=== PATIENT | female | born 1985 | race Caucasian/White ===

== ENCOUNTER 2018-12-11 07:33 | Emergency (ER) | payer MEDICAID, SELFPAY ==
[2018-12-11 07:35] VITALS: BP 131/83; PULSE 73; RESP 12; TEMP 36.8; O2SAT 100
--- NOTE | 2018-12-11 07:38 | W.ED.GENAD ---
Discharge Plan Disposition [facility] Condition: Fair Discharge Details Chief Complaint: AMS/LOC Clinical Impression: Psychosis Primary Care Provider: Nusrat Parr ED Provider: Kyleigh Boyer Home Meds and New Rx's Prescriptions: Continued naproxen [Naprosyn] 500 MG tablet 500 mg PO BID Qty: 30 RF: 1 ziprasidone HCl [Geodon] 80 MG capsule 80 mg PO HS RF: 0 trazodone 50 MG tablet 50 mg PO HS RF: 0 lithium carbonate 300 MG tablet extended release 450 mg PO BID RF: 0 ziprasidone HCl [Geodon] 40 MG capsule 40 mg PO DAILY RF: 0 Discharge Instructions Instructions: Cephalexin (By mouth), Urinary Tract Infection in Women (ED), Bipolar Disorder (ED) Additional Instructions: Please return immediately to the emergency department if you develop any new or worsening symptoms or if you become otherwise concerned. It is extremely important that you make an appointment to be seen as soon as possible by your primary care doctor. Referrals: Nusrat Parr [Primary Care Provider] - Discharge Data Discharge Date/Time-TO BE ENTERED AT DEPARTURE: 12/11/18 16:55 Medical Decision Making Libertad Doherty is a 33-year-old woman with a history of bipolar disorder who presented to the emergency department for acting abnormally at work this morning. On exam patient is well and nontoxic appearing, but does have some mildly inappropriate behavior and judgment. When asked about her family, patient states that she has 2 daughters who are 9 and 13. When asked who was taking care of them tonight, and patient states they are, they're taking care of themselves. When I asked if their father, Romero, would be taking care of them tonight, Pt stated, I guess so. Yes Romero. Romero is taking care of them. Patient reports that Romero is her emergency contact and also the father of her children. Per pt's work place, Pt was throwing lettuce in the air, acting inappropriately, very unlike her, which was the reason EMS was called. When asked why she was doing this, Pt reports, They asked me too. I was making salad. Suspect symptoms secondary to bipolar disorder, patient possbily not taking her medications as prescribed. Possible metabolic/lyte derangement. With her emergency contact stating the patient has had several episodes exactly typical of this in the past, I do not suspect non-psychiatric acute intracranial process. Attempted to contact [facility] for emergency department records, however they do not not have records of recent emergency room visit. Is unclear at this time where patient has care for these episodes in the past. We will continue to try to obtain information from patient's PCP. 8:53: Labs resulted, lithium level appropriate, labs nondiagnostic without significant derangement. Patient has been calm and cooperative, ate breakfast without issue. She does occasionally leave the exam room and is impulsive, and while she is not suicidal, will have sitter to stay with her as she needs to be seen by mental health for disposition planning. Patient does report to me that her Geodon dosage was decreased approximately 1 month ago, but states that the dosage decrease has been going well without issue. Continues to have impaired judgment. 10:55: Pt with her ieuqab-wz-pgn at bedside who reports that she knows Pt very well and his behavior is not her baseline. She reports that patient has had exactly similar behavior in the past when she has needed treatment for her bipolar disorder, but her bipolar has been under control for the past several years. Her gjyfky-ut-fex reports that she is very concerned for patient safety, that she seems unable to make safe judgments. I do concur with this, patient seems unable to realize potential dangers in her surroundings. Her odyldp-jm-euh is the mother of Romero Howell, patient's emergency contact. Oyixqz-nc-gpn states that neither she nor Romero will have the ability to watch the patient around the clock at home today. At this point I am very concerned for the patient's safety should she be discharged. Patient does not have decision-making capacity at this time. She does state that she will willingly go to a psychiatric facility for treatment. I discussed the patient with mental health. Plan to await placement. CPSO ordered at this time. 1535: Pt has been calm and cooperative in the emergency department. Equivocal UA. Plan to send for culture. Patient denies any urinary symptoms, however she has urinated frequently in the emergency department. We will plan to treat with Keflex. I discussed the patient with MALGORZATA Hdz of [facility], who will follow-up urine cx results. Accepting physician is Dr. Menon. Awaiting nurse to nurse communication prior to transport. Medical Records Medical records reviewed: Yes I reviewed the patient's medical records. Lab Data Lab results reviewed: Yes I reviewed the patient's lab results. ECG Data Attestation: I personally reviewed and interpreted this ECG (s) as follows: Interpretation: EKG shows sinus rhythm at 66, left axis unchanged from prior 2007, normal QRS and QT duration, no acute ischemic changes, nondiagnostic EKG HPI General Mode of arrival: EMS. Date/Time Provider Initiated Documentation: 12/11/18 07:38. Limitations to Documentation: altered mental status. Information obtained by: patient, family, RN notes reviewed and old records reviewed. HPI Narrative: Libertad Doherty is a 33 y/o woman with a history of bipolar disorder presenting to the emergency department with altered mental status. Patient went to work this morning at the [employer], and staff there was concerned that patient was not acting like herself and EMS was called. Patient's emergency contact, Romero Howell, called in and spoke to nursing in the emergency department. He stated that patient has had multiple similar episodes in the past that are all related to bipolar disorder and not taking her medications. Patient reports to me that she is in the emergency department because she is having a baby. She then laughs and states I am not having a baby. She denies any pain, fever, cough, shortness of breath, vomiting, diarrhea. She reports that she has been eating and drinking as usual. Patient reports that she has been taking her lithium every day as usual. She states that she did not take her Geodon this morning. She states that she does not drink alcohol and that the only drugs uses marijuana. She states that she used marijuana this morning. She denies suicidal thoughts or homicidal thoughts. Related Data Home Medications Medication Instructions Recorded Confirmed lithium carbonate 450 mg PO BID 01/21/15 12/11/18 trazodone 50 mg PO HS 01/21/15 12/11/18 ziprasidone HCl [Geodon] 40 mg PO DAILY 01/21/15 12/11/18 ziprasidone HCl [Geodon] 80 mg PO HS 01/21/15 12/11/18 naproxen [Naprosyn] 500 mg PO BID #30 tab 06/26/15 12/11/18 Allergies Allergy/AdvReac Type Severity Reaction Status Date / Time codeine AdvReac Unknown unknown Unverified 12/11/18 07:38 General Stated Complaint: AMS/LOC GAVIN: 2 Review of Systems Review of Systems Constitutional: denies fevers Eyes: denies eye pain ENT: denies facial pain, dental pain, sore throat Cardiovascular: denies chest pain Respiratory: denies SOB, cough GI: denies abdominal pain, vomiting, diarrhea : denies flank pain MSK: denies back pain, neck pain, arthralgias, myalgias Neuro: denies headaches, numbness, weakness Psych: Denies suicidality, homicidality [facility] Medical History bipolar disorder Surgical History Appendectomy Enterotomy Social History Smoking/Tobacco Use Status: Former Tobacco Use Quit Date: 11/20/16 Alcohol Intake: never Drug use: Never Substance use type: does not use Do you feel safe at home: Yes Do you feel safe in your relationship?: Yes Exam Narrative Exam Narrative: Constitutional: well and [id number], pleasant, abnormal content of conversation but otherwise conversing normally HENT: head atraumatic/normocephalic/normal inspection, mucous membranes moist Eyes: conjunctiva normal, sclera normal, pupils 3mm b/l Neck: no stridor, normal ROM, trachea midline Chest: normal inspection Resp: normal work of breathing, LCTAB Cardio: normal rate, normal rhythm, no murmur appreciated GI: abdomen soft, non-tender, non-distended Back: normal inspection, no rash Skin: warm, dry, normal color Neuro: alert, grossly non-focal, normal tone, walking about the ED without issue Ext: no edema Psych: The when asked the day, patient states 04/10/05. When asked if Pt believes it's 2004, she states, Oh no, I mean it is 2018, Tuesday after . Responds to query regarding who as the president is as Trump and at other times as Obama, with answer changing intermittently. Knows her address. Offering me random items from her hand bag to keep. No pressured speech, almost euphoric mood without agitation. Calm, easily redirectable. No apparent hallucinations. Taking toe caps for Pts in casts and placing them on her head as a bonnet. Picking up multiple items in exam room and using them inappropriately in a similar fashion. No attempts to self harm. Course Vital Signs Temperature 36.8 C 12/11/18 07:35 Pulse 73 12/11/18 07:35 Respiratory Rate 12 12/11/18 07:35 Blood Pressure 131/83 12/11/18 07:35 Pulse Oximetry 100 12/11/18 07:35 Temperature 36.8 C 12/11/18 07:35 Temperature Source Temporal Artery Scan 12/11/18 07:35 Pulse 73 12/11/18 07:35 Respiratory Rate 12 12/11/18 07:35 Blood Pressure 131/83 12/11/18 07:35 Blood Pressure Position Sitting 12/11/18 07:35 Pulse Oximetry 100 12/11/18 07:35 Oxygen Delivery Method Room Air 12/11/18 07:35 Oxygen Flow Rate 0 12/11/18 07:35 Pain Level 0 12/11/18 07:35
[2018-12-11 07:40] VITALS: RESP 12
--- NOTE | 2018-12-11 08:00 | ED.GENADUL_ITS ---
Discharge Plan Disposition [facility] Condition: Fair Discharge Details Chief Complaint: AMS/LOC Clinical Impression: Psychosis Primary Care Provider: Nusrat Parr ED Provider: Kyleigh Boyer Home Meds and New Rx's Prescriptions: Continued naproxen [Naprosyn] 500 MG tablet 500 mg PO BID Qty: 30 RF: 1 ziprasidone HCl [Geodon] 80 MG capsule 80 mg PO HS RF: 0 trazodone 50 MG tablet 50 mg PO HS RF: 0 lithium carbonate 300 MG tablet extended release 450 mg PO BID RF: 0 ziprasidone HCl [Geodon] 40 MG capsule 40 mg PO DAILY RF: 0 Discharge Instructions Instructions: Cephalexin (By mouth), Urinary Tract Infection in Women (ED), Bipolar Disorder (ED) Additional Instructions: Please return immediately to the emergency department if you develop any new or worsening symptoms or if you become otherwise concerned. It is extremely important that you make an appointment to be seen as soon as possible by your primary care doctor. Referrals: Nusrat Parr [Primary Care Provider] - Discharge Data Discharge Date/Time-TO BE ENTERED AT DEPARTURE: 12/11/18 16:55 Medical Decision Making Libertad Doherty is a 33-year-old woman with a history of bipolar disorder who presented to the emergency department for acting abnormally at work this morning. On exam patient is well and nontoxic appearing, but does have some mildly inappropriate behavior and judgment. When asked about her family, patient states that she has 2 daughters who are 9 and 13. When asked who was taking care of them tonight, and patient states they are, they're taking care of themselves. When I asked if their father, Rmoero, would be taking care of them tonight, Pt stated, I guess so. Yes Romero. Romero is taking care of them. P atient reports that Romero is her emergency contact and also the father of her children. Per pt's work place, Pt was throwing lettuce in the air, acting inappropriately, very unlike her, which was the reason EMS was called. When asked why she was doing this, Pt reports, They asked me too. I was making salad. Suspect symptoms secondary to bipolar disorder, patient possbily not taking her medications as prescribed. Possible metabolic/lyte derangement. With her emergency contact stating the patient has had several episodes exactly typical of this in the past, I do not suspect non-psychiatric acute intracranial process. Attempted to contact [facility] for emergency department records, however they do not not have records of recent emergency room visit. Is unclear at this time where patient has care for these episodes in the past. We will continue to try to obtain information from patient's PCP. 8:53: Labs resulted, lithium level appropriate, labs nondiagnostic without significant derangement. Patient has been calm and cooperative, ate breakfast without issue. She does occasionally leave the exam room and is impulsive, and while she is not suicidal, will have sitter to stay with her as she needs to be seen by mental health for disposition planning. Patient does report to me that her Geodon dosage was decreased approximately 1 month ago, but states that the dosage decrease has been going well without issue. Continues to have impaired judgment. 10:55: Pt with her rjkmeh-gg-znr at bedside who reports that she knows Pt very well and his behavior is not her baseline. She reports that patient has had exactly similar behavior in the past when she has needed treatment for her bipolar disorder, but her bipolar has been under control for the past several years. Her thhojf-jm-yai reports that she is very concerned for patient safety, that she seems unable to make safe judgments. I do concur with this, patient seems unable to realize potential dangers in her surroundings. Her hhwuva-eq-gig is the mother of Romero Howell, patient's emergency contact. Sjyifo-ch-sxt states that neither she nor Romero will have the ability to watch the patient around the clock at home today. At this point I am very concerned for the patient's safety should she be discharged. Patient does not have decision-making capacity at this time. She does state that she will willingly go to a psychiatric facility for treatment. I discussed the patient with mental health. Plan to await placement. CPSO ordered at this time. 1535: Pt has been calm and cooperative in the emergency department. Equivocal UA. Plan to send for culture. Patient denies any urinary symptoms, however she has urinated frequently in the emergency department. We will plan to treat with Keflex. I discussed the patient with MALGORZATA Hdz of [facility], who will follow-up urine cx results. Accepting physician is Dr. Menon. Awaiting nurse to nurse communication prior to transport. Medical Records Medical records reviewed: Yes I reviewed the patient's medical records. Lab Data Lab results reviewed: Yes I reviewed the patient's lab results. ECG Data Attestation: I personally reviewed and interpreted this ECG (s) as follows: Interpretation: EKG shows sinus rhythm at 66, left axis unchanged from prior 2007, normal QRS and QT duration, no acute ischemic changes, nondiagnostic EKG HPI General Mode of arrival: EMS . Date/Time Provider Initiated Documentation: 12/11/18 07:38 . Limitations to Documentation: altered mental status . Information obtained by: patient, family, RN notes reviewed and old records reviewed . HPI Narrative: Libertad Doherty is a 33 y/o woman with a history of bipolar disorder presenting to the emergency department with altered mental status. Patient went to work this morning at the [employer], and staff there was concerned that patient was not acting like herself and EMS was called. Patient's emergency contact, Romero Howell, called in and spoke to nursing in the emergency department. He stated that patient has had multiple similar episodes in the past that are all related to bipolar disorder and not taking her medications. Patient reports to me that she is in the emergency department because she is having a baby. She then laughs and states I am not having a baby. She denies any pain, fever, cough, shortness of breath, vomiting, diarrhea. She reports that she has been eating and drinking as usual. Patient reports that she has been taking her lithium every day as usual. She states that she did not take her Geodon this morning. She states that she does not drink alcohol and that the only drugs uses marijuana. She states that she used marijuana this morning. She denies suicidal thoughts or homicidal thoughts. Related Data Home Medications Medication Instructions Recorded Confirmed lithium carbonate 450 mg PO BID 01/21/15 12/11/18 trazodone 50 mg PO HS 01/21/15 12/11/18 ziprasidone HCl [Geodon] 40 mg PO DAILY 01/21/15 12/11/18 ziprasidone HCl [Geodon] 80 mg PO HS 01/21/15 12/11/18 naproxen [Naprosyn] 500 mg PO BID #30 tab 06/26/15 12/11/18 Allergies Allergy/AdvReac Type Severity Reaction Status Date / Time codeine AdvReac Unknown unknown Unverified 12/11/18 07:38 General Stated Complaint: AMS/LOC GAVIN: 2 Review of Systems Review of Systems Constitutional: denies fevers Eyes: denies eye pain ENT: denies facial pain, dental pain, sore throat Cardiovascular: denies chest pain Respiratory: denies SOB, cough GI: denies abdominal pain, vomiting, diarrhea : denies flank pain MSK: denies back pain, neck pain, arthralgias, myalgias Neuro: denies headaches, numbness, weakness Psych: Denies suicidality, homicidality [facility] Medical History bipolar disorder Surgical History Appendectomy Enterotomy Social History Smoking/Tobacco Use Status: Former Tobacco Use Quit Date: 11/20/16 Alcohol Intake: never Drug use: Never Substance use type: does not use Do you feel safe at home: Yes Do you feel safe in your relationship?: Yes Exam Narrative Exam Narrative: Constitutional: well and xip-[id number]-ztzwcbscu, pleasant, abnormal content of conversation but otherwise conversing normally HENT: head atraumatic/normocephalic/normal inspection, mucous membranes moist Eyes: conjunctiva normal, sclera normal, pupils 3mm b/l Neck: no stridor, normal ROM, trachea midline Chest: normal inspection Resp: normal work of breathing, LCTAB Cardio: normal rate, normal rhythm, no murmur appreciated GI: abdomen soft, non-tender, non-distended Back: normal inspection, no rash Skin: warm, dry, normal color Neuro: alert, grossly non-focal, normal tone, walking about the ED without issue Ext: no edema Psych: The when asked the day, patient states 04/10/05. When asked if Pt believes it's 2004, she states, Oh no, I mean it is 2018, Tuesday after . Responds to query regarding who as the president is as Trump and at other times as Obama, with answer changing intermittently. Knows her address. Offering me random items from her hand bag to keep. No pressured speech, almost euphoric mood without agitation. Calm, easily redirectable. No apparent hallucinations. Taking toe caps for Pts in casts and placing them on her head as a bonnet. Picking up multiple items in exam room and using them inappropriately in a similar fashion. No attempts to self harm. Course Vital Signs Temperature 36.8 C 12/11/18 07:35 Pulse 73 12/11/18 07:35 Respiratory Rate 12 12/11/18 07:35 Blood Pressure 131/83 12/11/18 07:35 Pulse Oximetry 100 12/11/18 07:35 Temperature 36.8 C 12/11/18 07:35 Temperature Source Temporal Artery Scan 12/11/18 07:35 Pulse 73 12/11/18 07:35 Respiratory Rate 12 12/11/18 07:35 Blood Pressure 131/83 12/11/18 07:35 Blood Pressure Position Sitting 12/11/18 07:35 Pulse Oximetry 100 12/11/18 07:35 Oxygen Delivery Method Room Air 12/11/18 07:35 Oxygen Flow Rate 0 12/11/18 07:35 Pain Level 0 12/11/18 07:35
[2018-12-11 08:09] LABS: Bilirubin Negative (Negative); Blood Moderate (Negative); Clarity Clear; Glucose Negative (Negative); Ketones Negative (Negative); Leukocyte Esterase Small (Negative); Nitrite Negative (Negative); Urobilinogen 0.2 EU/dL (Up TO 0.2)
[2018-12-11 08:23] LABS: *AMPHETAMINES SCREEN URINE Negative (Negative); *BARBITURATES SCREEN URINE Negative (Negative); *BENZODIAZEPINES SCREEN URINE Negative (Negative); Cannabinoids THC POSITIVE (Negative); Cocaine Screen,Urine Negative (Negative); METHADONE URINE SCREEN Negative (Negative); OPIATES URINE SCREEN Negative (Negative)
[2018-12-11 08:24] LABS: Tricyclic Antidepressants Negative (Negative)
[2018-12-11 08:25] LABS: Abs Immature Grans 0.01 k/cumm (0.0-0.09); Absolute Basophil Count 0.05 k/cumm (0.0-0.2); Absolute Eosinophil Count 0.01 k/cumm (0.0-0.7); Absolute Lymphocyte Count 1.36 k/cumm (1.2-3.4); Basophils % 0.6; Eosinophils % 0.1; HCT 41.6 % (36.0-46.0); HGB 13.8 g/dL (12.0-15.5); Immature Grans % 0.1; Lymphocytes % 16.5; Mean Corp. HGB Concentration 33.2 g/dL (32.0-36.0); Mean Corpuscular Hemoglobin 29.7 pg (27.0-33.0); Mean Corpuscular Volume 89.5 fL (80-95); Monocytes % 3.6; Neutrophils % 79.1; Platelet Count 301 x1000/uL (130-400); RBC 4.65 m/cumm (4.00-5.20); RBC Distribution Width 12.6 % (11.7-14.6); White Blood Cell Count 8.23 k/cumm (4.4-10.8)
[2018-12-11 08:32] LABS: ALT 13 U/L (12-78); AST 15 U/L (15-37); Albumin 4.4 g/dL (3.4-5.0); Alkaline Phosphatase 72 U/L (46-116); Anion Gap 11.3 mmol/L (3-11); BUN 6 mg/dL (7-18); Bilirubin, Total 1.9 mg/dL (0.2-1.0); CO2 25.7 mmol/L (21.0-32.0); CREATININE 0.92 mg/dL (0.55-1.02); Calcium 9.5 mg/dL (8.5-10.1); Chloride 103 mmol/L (98-107); Glucose 108 mg/dL (70-100); Potassium 3.5 mmol/L (3.5-5.1); Sodium 140 mmol/L (136-145); Total Protein 7.7 g/dL (6.4-8.2)
[2018-12-11 08:40] LABS: Lithium 0.75 mmol/L (0.60-1.20); Salicylate < 2.8 mg/dL (2.8-20.0)
[2018-12-11 08:41] LABS: ETHANOL BLOOD < 3.0 mg/dL (<3)
[2018-12-11 08:47] LABS: Acetaminophen < 2 ug/mL (10-30)
[2018-12-11 08:47] LABS: Bacteria Negative HPF (Negative); C & S Indicated? Yes; Casts Negative LPF (Negative); Crystals Negative HPF (Negative); Epithelial Cells Moderate HPF (Negative); Mucus Negative (Negative)
--- NOTE | 2018-12-11 10:17 | NUR.NOTE ---
patient cooperative. very impulsive, attempts to wander about er. redirected to room. given books, coloring sheets, wordfind sheets, crayons, puzzle, food and drink.
--- NOTE | 2018-12-11 10:54 | PDOC.MHCN ---
Mental Health Crisis Note Presenting Issue How did you arrive at the ED and why did you come: Lbiertad arrived to the emergency room due to concerns of her employer due to poor judgment that was made in the kitchen. She was cutting lettuce and the boss was concerned that her decisions and responses to questions were not making sense. She was sent to the emergency room via ambulance for concerns of an altered mental status. Precipitating Factors Libertad denies suicidal or homicidal ideation, planning, intent, or recent attempts. She is unable to give consistent reports of her medication in terms of reporting accurately whether or not she took medications last night. Her significant other reports he had to stay up all night to watch her because she wondered around the house all night. Her lithium levels were in therapeutic ranges. She did report that she has been put on Amitryptaline but was unable to report whether or not her symptoms have improved. She is willing to go to a hospital voluntarily at this time and is able to process some of the confusion and discrepancies between mood and affect at this time. Disposition BEHAVIOR: restless, some wandering, but able to be redirected, difficulty focusing EYE CONTACT: poor MOOD: depressed to slightly anxious AFFECT: distant to disdainful APPETITE: fair SLEEP(trouble falling/staying asleep: poor Plan Seeking voluntary hospitalization. [facility] has information about her, [facility] doesn't have beds, this comic writer will refer to [facility], or [facility] when needed.
--- NOTE | 2018-12-11 11:05 | PDOC.MHCN_ITS ---
Mental Health Crisis Note Presenting Issue How did you arrive at the ED and why did you come: Libertad arrived to the emergency room due to concerns of her employer due to poor judgment that was made in the kitchen. She was cutting lettuce and the boss was concerned that her decisions and responses to questions were not making sense. She was sent to the emergency room via ambulance for concerns of an altered mental status. Precipitating Factors Libertad denies suicidal or homicidal ideation, planning, intent, or recent attempts. She is unable to give consistent reports of her medication in terms of reporting accurately whether or not she took medications last night. Her significant other reports he had to stay up all night to watch her because she wondered around the house all night. Her lithium levels were in therapeutic ranges. She did report that she has been put on Amitryptaline but was unable to report whether or not her symptoms have improved. She is willing to go to a hospital voluntarily at this time and is able to process some of the confusion and discrepancies between mood and affect at this time. Disposition BEHAVIOR: restless, some wandering, but able to be redirected, difficulty focusing EYE CONTACT: poor MOOD: depressed to slightly anxious AFFECT: distant to disdainful APPETITE: fair SLEEP(trouble falling/staying asleep: poor Plan Seeking voluntary hospitalization. [facility] has information about her, [facility] doesn't have beds, this abstract writer will refer to [facility], or [facility] when needed.
--- NOTE | 2018-12-11 12:02 | NUR.NOTE ---
patient cooperative and cheerful. engaging in conversation with cpso and volunteer.
--- NOTE | 2018-12-11 13:32 | NUR.NOTE ---
patient still alert and cooperative. conversing with staff.
--- NOTE | 2018-12-11 15:13 | NUR.NOTE ---
patient alert, conversing with staff, smiling.
[2018-12-11] MEDS: Cephalexin 500 MG CAP PO (15:35)
--- NOTE | 2018-12-11 16:48 | NUR.NOTE ---
nurse to nurse and md to md reports given. transport is here to facilitate transfer to [place].
--- NOTE | 2018-12-13 18:43 | NUR.NOTE ---
Nursing Note: [facility] at [facility] request. Yue Davila.
== END 2018-12-11 16:55 | disposition short-term general hospital (02) ==
PROVIDERS: Emergency Provider Student in an Organized Health Care Education/Training Program; PCP Nurse Practitioner Family
DX: F29 Unspecified psychosis not due to a substance or known physiological condition (principal); F31.9 Bipolar disorder, unspecified; Z91.14 Patient's other noncompliance with medication regimen
CPT/HCPCS: 36415; 80053; 80307; 81025; 93005; 99284; 80178; 80320; 80329; 81003; 81015; 85025; 87086; 93010

== ENCOUNTER 2019-03-06 16:18 | Outpatient (REF) | payer MEDICAID, SELFPAY ==
--- NOTE | 2019-03-06 15:30 | PAPFT_PTH ---
PATIENT: Libertad Doherty LOC: [facility]#:[id number] AGE/SX: 33/F ROOM: RE03/06/[address]: Nusrat Parr : 1985 BED: DIS: 03/06/2019 SPEC #: [id number] RECD: 03/06/19 18:01 STATUS: MILLIE REAutumn #: [id number] CASH: 03/06/19 15:[address]: Nusrat Parr DEPT: [facility] Cytology RECD BY: Kathrin Walker Tissues: 1 - CX/ENDOCX FOR PAP SMEARS Procedures: PAP THIN PREP/UVM Screening HPV DNA PROBE Comments: [id number]
== END 2019-03-06 16:38 ==
LOC: NCHCN 16:18
PROVIDERS: PCP Nurse Practitioner Family; Visit Provider Nurse Practitioner Family
DX: Z12.4 Encounter for screening for malignant neoplasm of cervix (principal); Z11.51 Encounter for screening for human papillomavirus (HPV); Z00.00 Encounter for general adult medical examination without abnormal findings
CPT/HCPCS: 88142; 87624

== ENCOUNTER 2020-05-28 11:31 | Emergency (ER) | payer MEDICAID, SELFPAY ==
[2020-05-28 11:37] VITALS: BP 110/52; PULSE 72; RESP 16; TEMP 36.4; O2SAT 100
--- NOTE | 2020-05-28 12:16 | W.ED.GENAD ---
Discharge Plan Disposition Patient Disposition: HOME Condition: Stable Discharge Details Clinical Impression: Laceration of finger, index Primary Care Provider: Nusrat Parr ED Provider: Azucena Garcia Home Meds and New Rx's Prescriptions: New cephalexin 500 mg tablet 500 mg PO BID 5 Days Qty: 10 RF: 0 No Action naproxen [Naprosyn] 500 MG tablet 500 mg PO BID Qty: 30 RF: 1 ziprasidone HCl [Geodon] 80 MG capsule 80 mg PO HS RF: 0 trazodone 50 MG tablet 50 mg PO HS RF: 0 lithium carbonate 300 MG tablet extended release 450 mg PO BID RF: 0 ziprasidone HCl [Geodon] 40 MG capsule 40 mg PO DAILY RF: 0 buspirone 15 mg tablet 15 mg PO BID RF: 0 Discharge Instructions Instructions: Finger Laceration (ED), Skin Adhesive Care (ED) Additional Instructions: Follow up with primary care provider in 3-5 days. Return to ED sooner if any worsening or concerns. Increase oral fluids. Please take Tylenol or Ibuprofen with food every 4-6 hours as needed for pain and swelling. Take medications only if signs and symptoms of infection including increased redness, swelling, drainage or red streaks up your hand. The tissue adhesive will begin to slough off in 4 to 6 days. No soaking, after 12 to 24 hours you may wash it under running soap and water. Referrals: Nusrat Parr [Primary Care Provider] - Discharge Data Discharge Date/Time-TO BE ENTERED AT DEPARTURE: 05/28/20 13:14 Medical Decision Making Patient sustained a 0.5 cm laceration to the dorsum of her right index finger while opening a can of dog food prior to arrival. She has full range of motion noted to the digit. Laceration is0 superficial, this time and is nonsuturable, will close with tissue adhesive. Please see procedure note above. Last tetanus vaccination was 2012, will revaccinate here due to the mechanism of injury and status being greater than 5 years. Patient given a prescription for 5 days of cephalexin and instructed only to fill prescription if any signs of infection develop. Patient verbalized understanding. HPI General Mode of arrival: ambulatory. Date/Time Provider Initiated Documentation: 05/28/20 11:39. Limitations to Documentation: no limitations. Information obtained by: patient. HPI Narrative: 34-year-old female presents to the ER with chief complaint of right index finger laceration which occurred this morning while opening a can of dog food. She has a small superficial laceration noted to the dorsum of her index finger. She has full range of motion of the digit. No surrounding erythema or swelling, it is approximately 0.5 cm. Last tetanus injection was 2012, will give her additional vaccine here in department due to vaccination status greater than 5 years. Related Data Home Medications Medication Instructions Recorded Confirmed lithium carbonate 450 mg PO BID 01/21/15 05/28/20 trazodone 50 mg PO HS 01/21/15 05/28/20 ziprasidone HCl [Geodon] 40 mg PO DAILY 01/21/15 05/28/20 ziprasidone HCl [Geodon] 80 mg PO HS 01/21/15 05/28/20 naproxen [Naprosyn] 500 mg PO BID #30 tab 06/26/15 05/28/20 buspirone 15 mg PO BID 05/28/20 05/28/20 cephalexin 500 mg PO BID 5 Days #10 tab 05/28/20 Previous Rx's Medication Instructions Recorded cephalexin 500 mg PO BID 5 Days #10 tab 05/28/20 Allergies Allergy/AdvReac Type Severity Reaction Status Date / Time codeine AdvReac Unknown unknown Unverified 12/11/18 07:38 General Stated Complaint: Laceration GAVIN: 4 Review of Systems All systems reviewed & are unremarkable except as noted in HPI and below Integumentary/Breasts Skin/Breast: Reports wounds (Laceration to the dorsum of the right index finger) [facility] Medical History (Updated 05/28/20 @ 12:26 by Azucena Garcia) bipolar disorder Surgical History Appendectomy Enterotomy Social History Smoking/Tobacco Use Status: Former Tobacco Use Quit Date: 11/20/16 Alcohol Intake: never Drug use: Never Substance use type: does not use Do you feel safe at home: Yes Do you feel safe in your relationship?: Yes Exam Const General: cooperative, healthy appearing, comfortable, no acute distress, well developed and well groomed Nutritional Appearance: average body habitus Orientation: alert, awake and oriented x3 Skin Wounds: wounds noted laceration right dorsal 2nd finger size (0.5cm) and other (Tissue adhesive applied, see procedure note, FROM); no drainage Course Vital Signs Vital signs: Vital Signs Temperature 36.4 C L 05/28/20 11:37 Pulse 72 05/28/20 11:37 Respiratory Rate 16 05/28/20 11:37 Blood Pressure 110/52 L 05/28/20 11:37 Pulse Oximetry 100 05/28/20 11:37 Temperature 36.4 C L 05/28/20 11:37 Temperature Source Temporal Artery Scan 05/28/20 11:37 Pulse 72 05/28/20 11:37 Respiratory Rate 16 05/28/20 11:37 Blood Pressure 110/52 L 05/28/20 11:37 Pulse Oximetry 100 05/28/20 11:37 Oxygen Delivery Method Room Air 05/28/20 11:37 Oxygen Flow Rate 0 05/28/20 11:37 Pain Level 1 05/28/20 11:37 Procedures Laceration Laceration 1: Site: hand (Index finger) Side (If applicable): right Size (cm): 0.5 Description: linear Depth: simple, single layer Local Anesthetic: other anesthetic (none) Pre-repair: wound explored, irrigated extensively and deep structures intact Skin layer closed with: other (Tissue adhesive)
--- NOTE | 2020-05-29 11:56 | NUR.NOTE ---
Called in at 1155 today stating she was told by provider that she could shower today---confirmed by Miguel NEUROLOGICAL SURGERY TEACHER---encouraged to avoid lotions/oils/actual scrubbing of area and air dry well prior to covering. Verbalizes understanding.Nursing Note:
== END 2020-05-28 13:14 | disposition home or self-care (01) ==
PROVIDERS: Emergency Provider Registered Nurse Emergency; PCP Nurse Practitioner Family
DX: S61.210A Laceration without foreign body of right index finger without damage to nail, initial encounter (principal); W26.8XXA Contact with other sharp object(s), not elsewhere classified, initial encounter
CPT/HCPCS: 12001; 90471

== ENCOUNTER 2021-01-14 03:21 | Outpatient (CLI) | payer MEDICAID, SELFPAY ==
[2021-01-14 11:29] LABS: Abs Immature Grans 0.03 10^3/uL (0.0-0.06); Absolute Basophil Count 0.06 10^3/uL (0.0-0.2); Absolute Eosinophil Count 0.05 10^3/uL (0.0-0.7); Absolute Lymphocyte Count 1.75 10^3/uL (1.2-3.4); Absolute Monocyte Count 0.37 10^3/uL (0.1-0.8); Absolute Neutrophil Count 6.63 10^3/uL (1.2-6.7); Basophils % 0.7; Eosinophils % 0.6; HCT 41.6 % (36.0-46.0); HGB 13.9 g/dL (11.2-15.7); Immature Grans % 0.3; Lymphocytes % 19.7; MCH 29.4 pg (27.0-33.0); MCHC 33.4 % (32.0-36.0); MCV 88.1 fL (80-95); MPV 9.6 fL (8.0-11.0); Monocytes % 4.2; Neutrophils % 74.5; Nucleated RBC 0 %; Platelet Count 321 10^3/uL (130-400); RBC 4.72 10^6/uL (3.93-5.22); RDW 12.4 % (11.7-14.6); RDW-SD 40.2 fL; WBC 8.89 10^3/uL (4.4-10.8)
[2021-01-14 12:19] LABS: Lithium 0.3 mmol/l (0.6-1.2)
[2021-01-14 12:34] LABS: ALT 18 U/L (14-59); AST 13 U/L (15-37); Albumin 3.3 g/dL (3.4-5.0); Alkaline Phosphatase 72 U/L (46-116); Anion Gap 11.8 mmol/L (3-11); BUN 8 mg/dL (7-18); Bilirubin, Total 0.6 mg/dL (0.2-1.0); CO2 23.2 mmol/L (21.0-32.0); CREATININE 0.9 mg/dL (0.55-1.02); Chloride 107 mmol/L (98-107); Glucose 84 mg/dL (74-106); Potassium 4.2 mmol/L (3.5-5.1); Sodium 142 mmol/L (136-145); TSH 0.37 uIU/mL (0.36-3.74); Total Protein 6.9 g/dL (6.4-8.2)
== END 2021-01-14 03:22 | disposition home or self-care (01) ==
LOC: LBO 03:22
PROVIDERS: PCP Nurse Practitioner Family; Visit Provider Counselor Addiction (Substance Use Disorder)
DX: F31.31 Bipolar disorder, current episode depressed, mild (principal); Z79.899 Other long term (current) drug therapy; Z51.81 Encounter for therapeutic drug level monitoring
CPT/HCPCS: 36415; 80053; 80178; 84443; 85025

== ENCOUNTER 2021-03-05 19:55 | Outpatient (REF) | payer MEDICAID, SELFPAY | END 2021-03-05 19:56 | disposition home or self-care (01) | LOC: NCHCN 19:55 | PROVIDERS: PCP Nurse Practitioner Family; Visit Provider Nurse Practitioner Family | DX: R82.79 Other abnormal findings on microbiological examination of urine (principal) | CPT/HCPCS: 87086 ==

== ENCOUNTER 2023-06-28 18:15 | Outpatient (REF) | payer MEDICAID, SELFPAY ==
[2023-06-28 19:17] LABS: MCH 28.7 pg (27.0-33.0); MCHC 32.6 % (32.0-36.0); MCV 88 fL (80-95); MPV 10.6 fL (8.0-11.0); Platelet Count 389 10^3/uL (130-400); RBC 4.88 10^6/uL (3.93-5.22); RDW 12.5 % (11.7-14.6); RDW-SD 41.1 fL; WBC 10.83 10^3/uL (4.4-10.8)
[2023-06-28 19:22] LABS: Lithium 0.4 mmol/l (0.6-1.2)
[2023-06-28 19:37] LABS: Albumin 3.6 g/dL (3.4-5.0); BUN 10 mg/dL (7-18); Bilirubin, Total 0.3 mg/dL (0.2-1.0); CREATININE 0.9 mg/dL (0.55-1.02); Calcium 9.8 mg/dL (8.5-10.1)
[2023-06-28 20:23] LABS: ALT 18 U/L (14-59); AST 12 U/L (15-37); Alkaline Phosphatase 82 U/L (46-116); Anion Gap 11.5 mmol/L (3-11); CO2 22.5 mmol/L (21.0-32.0); Chloride 103 mmol/L (98-107); Glucose 70 mg/dL (74-106); Sodium 137 mmol/L (136-145); Total Protein 7.2 g/dL (6.4-8.2)
== END 2023-06-28 18:16 | disposition home or self-care (01) ==
LOC: NCHCN 18:15
PROVIDERS: PCP Nurse Practitioner Family; Visit Provider Nurse Practitioner Family
DX: Z51.81 Encounter for therapeutic drug level monitoring (principal); F31.9 Bipolar disorder, unspecified
CPT/HCPCS: 80053; 85027; 80178

== ENCOUNTER 2024-02-23 16:13 | Emergency (ER) | payer MEDICAID, SELFPAY ==
[2024-02-23 16:15] VITALS: BP 151/87; PULSE 90; RESP 18; TEMP 36.8; O2SAT 99
[2024-02-23 16:45] VITALS: BP 151/87; PULSE 90; RESP 18; TEMP 36.8; O2SAT 99
[2024-02-23 16:56] VITALS: BP 151/87; PULSE 90; RESP 18; TEMP 36.8; O2SAT 99
--- NOTE | 2024-02-23 19:01 | ED.GENADUL_ITS ---
Discharge Plan Disposition Patient Disposition: Home Discharge Details Clinical Impression: Impacted cerumen of both ears Primary Care Provider: Unknown,Unknown ED Provider: Ramses Macdonald Home Meds and New Rx's Prescriptions: No Action lithium carbonate 300 MG tablet extended release 450 mg PO ONCE buspirone 15 mg tablet 15 mg PO BID Patient Comments: TK 1 T PO TID haloperidol 10 mg tablet 10 mg PO BID Patient Comments: TAKE ONE TABLET BY MOUTH TWICE A DAY benztropine 0.5 mg tablet 0.5 mg PO BID Patient Comments: TAKE ONE TABLET BY MOUTH TWICE A DAY Discharge Instructions Instructions: Ear Wax Impaction ED Additional Instructions: continue debrox ear drops to keep wax clear can follow up with PCP for re-evaluation as needed Discharge Data Discharge Date/Time-TO BE ENTERED AT DEPARTURE: 02/23/24 16:57 HPI General Date/Time Provider Initiated Documentation: 02/23/24 16:26 . Limitations to Documentation: no limitations . Information obtained by: patient . HPI Narrative: 38-year-old female with past medical history including bipolar disorder presents for evaluation of ear fullness bilaterally. She states that she is having some fullness and difficulty hearing. She denies significant pain. She reports that she has been using [id number] eardrops to try to remove the wax. She presents today requesting irrigation of the ears. Related Data Home Medications Medication Instructions Recorded Confirmed lithium carbonate 300 mg 450 mg PO ONCE 01/21/15 02/23/24 tablet,extended release buspirone 15 mg tablet 15 mg PO BID 05/28/20 02/23/24 benztropine 0.5 mg tablet 0.5 mg PO BID 02/23/24 02/23/24 haloperidol 10 mg tablet 10 mg PO BID 02/23/24 02/23/24 Allergies Allergy/AdvReac Type Severity Reaction Status Date / Time codeine AdvReac Unknown unknown Unverified 12/11/18 07:38 General Stated Complaint: EarProblem GAVIN: 4 Exam Narrative Exam Narrative: Review of Systems: All systems reviewed & are unremarkable except as noted in HPI and below Well-developed, no acute distress NCAT PERRL, normal conjunctiva Canals with cerumen impaction, after ear irrigation, the right canal is clear and TM unremarkable. The left canal remains occluded. RRR Unlabored respiratory effort Nondistended abdomen Extremities w/o deformity, no cyanosis, no edema No rashes or lesions. no focal neurologic deficits Appropriate mood and affect Course Vital Signs Vital signs: Vital Signs Temperature 36.8 C 02/23/24 16:15 Pulse 90 02/23/24 16:15 Respiratory Rate 18 02/23/24 16:15 Blood Pressure 151/87 H 02/23/24 16:15 Pulse Oximetry 99 02/23/24 16:15 Temperature 36.8 C 02/23/24 16:56 Temperature Source Tympanic 02/23/24 16:45 Pulse 90 02/23/24 16:56 Respiratory Rate 18 02/23/24 16:56 Respiratory Effort Normal 02/23/24 16:47 Blood Pressure 151/87 H 02/23/24 16:56 Blood Pressure Position Sitting 02/23/24 16:45 Pulse Oximetry 99 02/23/24 16:56 Oxygen Delivery Method Room Air 02/23/24 16:45 Oxygen Flow Rate 0 02/23/24 16:15 Pain Level 0 02/23/24 16:56 Medical Decision Making Emergent evaluation of cerumen impaction. The patient reports symptoms greater on the right versus left. She denies any pain or fever. Have a low suspicion for infectious etiology. There is no foreign body noted in the ear. She has been using Debrox drops at home but mostly just on the right. Bilateral ears were irrigated, wax was flushed from the right ear. On reevaluation canal and TM are unremarkable. The left needs additional wax softening with Debrox. Advised continued use and follow-up with PCP. No indication for antibiotics or pain control Medical Records Medical records reviewed: Yes I reviewed the patient's medical records. Quality:SDOH Health Related Social Needs: No Data to Display PFSH All Active Problems Impacted cerumen of both ears (Acute) disposition (Acute) Fistula of small intestine (Acute) Liver mass, right lobe (Acute) Thrombocytosis (Acute) Abdominal abscess (Acute) Infection (Acute) Bipolar 1 disorder (Acute) Medical History bipolar disorder Surgical History Enterotomy Appendectomy Social History Smoking/Tobacco Use Status: Former Tobacco Use Quit Date: 11/20/16 Smoking risk assessment performed?: Yes Alcohol Intake: never Drug use: Never Substance use type: does not use Do you feel safe at home: Yes Do you feel safe in your relationship?: Yes
== END 2024-02-23 16:57 | disposition home or self-care (01) ==
PROVIDERS: Emergency Provider Emergency Medicine
DX: H93.8X3 Other specified disorders of ear, bilateral (principal); H61.23 Impacted cerumen, bilateral
CPT/HCPCS: 99283

== ENCOUNTER 2024-07-25 13:27 | Outpatient (REF) | payer MEDICAID, SELFPAY ==
[2024-07-25 20:18] LABS: HCT 42.9 % (36.0-46.0); HGB 14.2 g/dL (11.2-15.7); MCH 29.8 pg (27.0-33.0); MCHC 33.1 % (32.0-36.0); MCV 90 fL (80-95); MPV 10.7 fL (8.0-11.0); Platelet Count 340 10^3/uL (130-400); RBC 4.77 10^6/uL (3.93-5.22); RDW 12.5 % (11.7-14.6); RDW-SD 41.7 fL
[2024-07-25 20:46] LABS: ALT 19 U/L (14-59); AST 19 U/L (15-37); Albumin 3.5 g/dL (3.4-5.0); Alkaline Phosphatase 81 U/L (46-116); Anion Gap 9.1 mmol/L (3-11); BUN 10 mg/dL (7-18); Bilirubin, Total 0.27 mg/dL (0.2-1.0); CO2 23.9 mmol/L (21.0-32.0); CREATININE 0.9 mg/dL (0.55-1.02); Calcium 9.4 mg/dL (8.5-10.1); Chloride 109 mmol/L (98-107); Estimated GFR 82.88 (mL/min/1.73m2); Glucose 85 mg/dL (74-106); Potassium 4.2 mmol/L (3.5-5.1); Sodium 142 mmol/L (136-145); Total Protein 7.4 g/dL (6.4-8.2)
[2024-07-25 20:56] LABS: Lithium 0.3 mmol/L (0.6-1.2)
== END 2024-07-25 13:28 | disposition home or self-care (01) ==
LOC: NCHCN 13:27
PROVIDERS: Visit Provider Nurse Practitioner Family
DX: Z51.81 Encounter for therapeutic drug level monitoring (principal)
CPT/HCPCS: 80053; 85027; 80178; 84439; 84443

== ENCOUNTER 2024-10-26 15:11 | Outpatient (REF) | payer MEDICAID, SELFPAY ==
--- NOTE | 2024-10-26 14:00 | PAPFT_PTH ---
PATIENT: Libertad Doherty LOC: [facility]#:[id number] AGE/SX: 39/F ROOM: RE10/26/[address]: Suad Roa : 1985 BED: DIS: 10/26/2024 SPEC #: [id number] RECD: 10/29/24 13:25 STATUS: MILLIE REAutumn #: [id number] CASH: 10/26/24 14:[address]: Suad Roa DEPT: [facility] Cytology RECD BY: Kathrin Walker Tissues: 1 - CX/ENDOCX FOR PAP SMEARS Procedures: PAP THIN PREP/UVM Screening HPV DNA PROBE Comments: [id number] (HPV 16 & 18/45)
== END 2024-10-26 15:12 | disposition home or self-care (01) ==
LOC: NCHCN 15:11
PROVIDERS: PCP Nurse Practitioner Family; Visit Provider Nurse Practitioner Family
DX: Z00.00 Encounter for general adult medical examination without abnormal findings (principal); Z12.4 Encounter for screening for malignant neoplasm of cervix; Z11.51 Encounter for screening for human papillomavirus (HPV)
CPT/HCPCS: 88142; 87624